=== PATIENT | male | born 1985 | race Caucasian/White ===

== ENCOUNTER 2020-06-19 14:17 | Emergency (ER) | payer OTHER ==
[~2020-06-19] VITALS: Ht 165.1 cm; Wt 63.5 kg
[~2020-06-19 14:17] MED LIST: NAPROSYN500 MG PO
[2020-06-19 15:05] LABS: ABSOLUTE EOSINOPHILS 0.1 thou/uL (0.0-0.7); ABSOLUTE LYMPHOCYTES 1.8 thou/uL (0.8-5.3); ABSOLUTE MONOCYTES 0.9 thou/uL (0.0-1.2); ABSOLUTE NEUTROPHILS 8.8 thou/uL (1.6-8.1); BASOPHILS 0.4 %; EOSINOPHILS 1.1 %; HEMATOCRIT 46.7 % (42.0-52.0); HEMOGLOBIN 15.4 gm/dL (14.0-18.0); LYMPHOCYTES 15.4 %; MCH 28.9 pg (26.0-34.0); MCV 87.3 fL (80.0-100.0); MONOCYTES 7.4 %; NUCLEATED RBCS 0 /100WBC; PLATELET COUNT* 195 thou/uL (150-400); POLYS 75.7 %; RBC 5.34 mil/uL (4.50-6.00); RDW-CV 13.1 % (10.5-14.5); WBC 11.7 thou/uL (4.0-11.0)
[2020-06-19 15:17] LABS: CALCIUM 8.5 mg/dL (8.5-10.1); CREATININE 0.9 mg/dL (0.6-1.3); POTASSIUM 4.2 mmol/L (3.5-5.1)
[2020-06-19 15:22] LABS: ALBUMIN 3.4 g/dL (3.4-5.0); TOTAL BILIRUBIN 0.3 mg/dL (<0.1-1.0); TOTAL PROTEIN 7.3 g/dL (6.4-8.2)
[2020-06-19 16:08] LABS: ESR (SEDRATE) 13 mm/hr (0-15)
[2020-06-19] MEDS ORDERED: KEFLEX500 M1 PO (16:16)
[2020-06-19] MEDS ORDERED: HYDROCODON-ACE1 EAC7 PO (16:16)
[2020-06-19] MEDS ORDERED: BACTRIM DS TAB1 EACH PO (16:16)
[2020-06-19 16:32] VITALS: BP 116/67
== END 2020-06-19 16:32 | disposition home or self-care (01) ==
LOC: M.ERS 14:17
PROVIDERS: Physician Assistant
DX: L03.115 Cellulitis of right lower limb (principal); G47.30 Sleep apnea, unspecified